=== PATIENT | male | born 1960 | race Caucasian/White ===

== ENCOUNTER → 2016-06-20 | Outpatient (CLI) | payer BC ==
[~2016-06-20] MED LIST: ZOLP5TAB PO
[2016-06-20 09:51] LABS: ESTIMATED AVERAGE GLUCOSE 111 mg/dl; HA1C FLAG Normal (Normal)
[2016-06-20 09:55] LABS: CHOLESTEROL/HDL RATIO 5.3; THYROID STIMULATING HORMONE 2.93 uIu/ml (0.300-4.500)
[2016-06-21 09:33] LABS: C-REACTIVE PROT HIGHSEN 0.9 MG/L
== END | disposition home or self-care (01) ==
LOC: C.LAB 07:28
DX: E78.5 Hyperlipidemia, unspecified (principal); R73.9 Hyperglycemia, unspecified

== ENCOUNTER 2016-07-22 09:14 | Emergency (ER) | payer BC ==
[~2016-07-22] VITALS: Ht 172.7 cm; Wt 81.2 kg
[2016-07-22 09:23] VITALS: TEMP 36.7; Ht 172.7 cm; Wt 81.2 kg
[2016-07-22] MEDS ORDERED: SODIUM CHLORIDE 0.9% 1000ML 500 ML IV STA (09:43)
[2016-07-22 10:07] LABS: BASO % 0.7 %; BASO ABS # 0.04 K/uL (0-0.2); COMPLETE YES; EOS % 5.3 %; HEMATOCRIT 42.2 % (42-52); IG% 0.2 %; LYMPH % 32.8 %; LYMPH ABS # 1.97 K/uL (1.2-3.4); MEAN CORPUSCULAR HEMOGLOBIN 29.3 pg (25-34); MEAN CORPUSCULAR HGB CONC 33.6 g/dl (32-36); MEAN PLATELET VOLUME 10.4 fL (7.4-10.4); MONO % 8.8 %; NEUT % 52.2 %; PLATELET COUNT 193 K/uL (130-400); RED BLOOD COUNT 4.85 M/uL (4.7-6.1)
[2016-07-22] MEDS ORDERED: ZOLP5TAB PO (10:13)
--- NOTE | 2016-07-22 10:23 | DIAGNOSTIC IMAGING REPORT ---
LUMBAR SPINE CT CT DOSE: HISTORY: Pain please reformat ct for stone to look at lumbar spine TECHNIQUE: Multiaxial CT images of the lumbar spine were performed and reformatted in the sagittal and coronal plane without the use of contrast. COMPARISON: None. FINDINGS: Vertebral body stature is normal. Degenerative intervertebral this changes present at L4-L5 and L5-S1. Mild osteophytic narrowing of the neuroforamina bilaterally at L4-L5 and L5-S1. No major compromise of the spinal canal. IMPRESSION: Mild degenerative change from L4 through S1. Mild osteophytic narrowing of the neuroforamina bilaterally from L4 through S1. No major compromise of the spinal canal. Electronically signed by: Beau Doss M.D. 07/22/2016 10:22 AM Dictated Date/Time: 07/22/2016 10:19 AM
--- NOTE | 2016-07-22 10:25 | DIAGNOSTIC IMAGING REPORT ---
ABDOMEN AND PELVIS CT WITHOUT CONTRAST CT DOSE: 674.61 mGy.cm HISTORY: back pain moving to abdomen--left worse TECHNIQUE: Multiaxial CT images of the abdomen and pelvis were performed without the use of intravenous and oral contrast according to the standard department stone protocol. COMPARISON STUDY: None. FINDINGS: The lung bases are clear. The unenhanced liver, gallbladder, spleen, pancreas, and adrenal glands are unremarkable. No renal stones or hydronephrosis. No bowel wall thickening or obstruction. The pelvic organs are unremarkable. No suspicious lytic or blastic osseous lesions. Normal appendix. IMPRESSION: No renal stones or hydronephrosis. Electronically signed by: aVn Vang M.D. 07/22/2016 10:24 AM Dictated Date/Time: 07/22/2016 10:19 AM
[2016-07-22 10:26] LABS: BUN/CREATININE RATIO 17.3 (10-20); CALCIUM 8.5 mg/dl (8.5-10.1); CREATININE 0.93 mg/dl (0.60-1.40); POTASSIUM 4.1 mmol/L (3.5-5.1)
[2016-07-22 10:28] LABS: ALB/GLOB RATIO 1.3 (0.9-2)
[2016-07-22 10:39] LABS: URINE APPEARANCE CLEAR (CLEAR); URINE BILIRUBIN NEG (NEG); URINE COLOR DK YELLOW; URINE NITRITE NEG (NEG); URINE SPECIFIC GRAVITY 1.024 (1.000-1.030); UROBILINOGEN NEG (NEG); ZZUR CULT IF INDIC CLEAN CATCH NO
[2016-07-22 10:42] LABS: MANUAL MICROSCOPIC REQUIRED? NO; REVIEW REQ? NO
[2016-07-22 11:25] VITALS: BP 110/85; PULSE 58; O2SAT 97
--- NOTE | 2016-07-22 14:34 | EMERGENCY ROOM VISIT NOTE ---
History Report prepared by Josemanuel: Deni Escobar Under the Supervision of: Dr. Jad Roberto M.D. First contact with patient: 09:32 Chief Complaint: BACK PAIN Stated Complaint: SPREADING BACK PAIN History of Present Illness The patient is a 56 year old male who presents to the Emergency Room with complaints of worsening back pain that started two weeks ago. He reports his discomfort as a 8/10 in severity. The patient states that he was fishing two weeks ago and suddenly fell into the stream on his foot. He denies falling on his abdomen or back. The patient reports that he started to feel pain in his right lower back following the incident, which has radiated to his abdomen. The patient states that he has seen his chiropractor twice including once ten days ago. He reports that during his last visit his chiropractor said that his back was doing better and was "looser". The patient states that his pain is exacerbated with movement. He reports that he took Motrin two days ago, which he admits gives him mild relief. The patient states that he also used Biofreeze and ice yesterday, and he admits the ice gives him a moderate amount of relief of pain. He also reports that his left leg is weak with a shooting pain down to his foot. He admits he takes Ambien daily to aid with sleeping. The patient denies any urinary symptoms, abnormal bowel movement, nausea, diaphoresis, fevers, kidney stones, family history of kidney stones, a history of diverticulitis, or any other pain. Source of History: patient Onset: two weeks ago Position: back Symptom Intensity: 8/10 Timing: worsening Modifying Factors (Worsening): exertion, movement Modifying Factors (Relieving): ice (Motrin), other Associated Symptoms: + abdominal pain, No fevers, No diaphoresis, No nausea , No diarrhea, No urinary symptoms Review of Systems See HPI for pertinent positives & negatives. A total of 10 systems reviewed and were otherwise negative. Past Medical & Surgical Medical Problems: (1) Asthma Family History FH: heart disease Social History Smoking Status: Light Tobacco Smoker (occasional cigar) Smokeless Tobacco Use: Yes Alcohol Use: none Drug Use: none Marital Status: single Housing Status: lives alone Occupation Status: employed Current/Historical Medications Scheduled Zolpidem Tartrate (Ambien), 5 MG PO HS Allergies Coded Allergies: BEE STING (Verified Allergy, Unknown, RASH, 8/20/16) Physical Exam Vital Signs Date Time Temp Pulse Resp B/P (MAP) Pulse Ox O2 Delivery O2 Flow Rate FiO2 07/22/16 11:25 58 16 110/85 97 07/22/16 10:40 72 18 106/64 96 Room Air 07/22/16 09:23 36.7 74 16 122/75 97 Room Air Physical Exam GENERAL: Patient is in no acute distress. HEENT: No acute trauma, normocephalic atraumatic, mucous membranes moist, no nasal congestion, no scleral icterus. NECK: No stridor, no adenopathy, no meningismus, trachea is midline. LUNGS: Clear to auscultation bilaterally, no wheeze, no rhonchi, breath sounds equal. HEART: Without murmurs gallops or rubs, regular rate and rhythm. ABDOMEN: Soft, tender mostly in left lower quadrant, bowel sounds positive, no hernias, no peritonitis. BACK: Tender with palpation of right lumbar musculature no tenderness to lumbar spine EXTREMITIES: No cyanosis or edema, full range of motion of all the joints without pain or difficulty, no signs for acute trauma. NEUROLOGIC: Oriented x 3, no acute motor or sensory deficits, no focal weakness. 2/4 reflexes in patella and Achilles bilaterally. SKIN: No rash, no jaundice, no diaphoresis. Medical Decision & Procedures ER Provider Diagnostic Interpretation: Radiology results as stated below per my review and radiologist interpretation: LUMBAR SPINE CT CT DOSE: HISTORY: Pain please reformat ct for stone to look at lumbar spine TECHNIQUE: Multiaxial CT images of the lumbar spine were performed and reformatted in the sagittal and coronal plane without the use of contrast. COMPARISON: None. FINDINGS: Vertebral body stature is normal. Degenerative intervertebral this changes present at L4-L5 and L5-S1. Mild osteophytic narrowing of the neuroforamina bilaterally at L4-L5 and L5-S1. No major compromise of the spinal canal. IMPRESSION: Mild degenerative change from L4 through S1. Mild osteophytic narrowing of the neuroforamina bilaterally from L4 through S1. No major compromise of the spinal canal. Electronically signed by: Beau Doss M.D. 07/22/2016 10:22 AM Dictated Date/Time: 07/22/2016 10:19 AM ABDOMEN AND PELVIS CT WITHOUT CONTRAST CT DOSE: 674.61 mGy.cm HISTORY: back pain moving to abdomen--left worse TECHNIQUE: Multiaxial CT images of the abdomen and pelvis were performed without the use of intravenous and oral contrast according to the standard department stone protocol. COMPARISON STUDY: None. FINDINGS: The lung bases are clear. The unenhanced liver, gallbladder, spleen, pancreas, and adrenal glands are unremarkable. No renal stones or hydronephrosis. No bowel wall thickening or obstruction. The pelvic organs are unremarkable. No suspicious lytic or blastic osseous lesions. Normal appendix. IMPRESSION: No renal stones or hydronephrosis. Electronically signed by: Van Vang M.D. 07/22/2016 10:24 AM Dictated Date/Time: 07/22/2016 10:19 AM Laboratory Results 07/22/16 09:55 Red Blood Count 4.85, Mean Corpuscular Volume 87.0, Mean Corpuscular Hemoglobin 29.3, Mean Corpuscular Hemoglobin Concent 33.6, Mean Platelet Volume 10.4, Neutrophils (%) (Auto) 52.2, Lymphocytes (%) (Auto) 32.8, Monocytes (%) (Auto) 8.8, Eosinophils (%) (Auto) 5.3, Basophils (%) (Auto) 0.7, Neutrophils # (Auto) 3.13, Lymphocytes # (Auto) 1.97, Monocytes # (Auto) 0.53, Eosinophils # (Auto) 0.32, Basophils # (Auto) 0.04 07/22/16 09:55 Test 07/22/16 09:34 07/22/16 09:55 Urine Color DK YELLOW Urine Appearance CLEAR (CLEAR) Urine pH 7.0 (4.5-7.5) Urine Specific [place] 1.024 (1.000-1.030) Urine Protein NEG (NEG) Urine Glucose (UA) NEG (NEG) Urine Ketones TRACE (NEG) Urine Occult Blood NEG (NEG) Urine Nitrite NEG (NEG) Urine Bilirubin NEG (NEG) Urine Urobilinogen NEG (NEG) Urine Leukocyte Esterase NEG (NEG) White Blood Count 6.00 K/uL (4.8-10.8) Red Blood Count 4.85 M/uL (4.7-6.1) Hemoglobin 14.2 g/dL (14.0-18.0) Hematocrit 42.2 % (42-52) Mean Corpuscular Volume 87.0 fL (80-100) Mean Corpuscular Hemoglobin 29.3 pg (25-34) Mean Corpuscular Hemoglobin Concent 33.6 g/dl (32-36) Platelet Count 193 K/uL (130-400) Mean Platelet Volume 10.4 fL (7.4-10.4) Neutrophils (%) (Auto) 52.2 % Lymphocytes (%) (Auto) 32.8 % Monocytes (%) (Auto) 8.8 % Eosinophils (%) (Auto) 5.3 % Basophils (%) (Auto) 0.7 % Neutrophils # (Auto) 3.13 K/uL (1.4-6.5) Lymphocytes # (Auto) 1.97 K/uL (1.2-3.4) Monocytes # (Auto) 0.53 K/uL (0.11-0.59) Eosinophils # (Auto) 0.32 K/uL (0-0.5) Basophils # (Auto) 0.04 K/uL (0-0.2) RDW Standard Deviation 40.2 fL (36.4-46.3) RDW Coefficient of Variation 12.6 % (11.5-14.5) Immature Granulocyte % (Auto) 0.2 % Immature Granulocyte # (Auto) 0.01 K/uL (0.00-0.02) Anion Gap 6.0 mmol/L (3-11) Est Creatinine Clear Calc Drug Dose 85.8 ml/min Estimated GFR () 106.0 Estimated GFR (Non- 91.4 BUN/Creatinine Ratio 17.3 (10-20) Calcium Level 8.5 mg/dl (8.5-10.1) Total Bilirubin 0.5 mg/dl (0.2-1) Aspartate Amino Transf (AST/SGOT) 21 U/L (15-37) Alanine Aminotransferase (ALT/SGPT) 22 U/L (12-78) Alkaline Phosphatase 54 U/L (45-117) Total Protein 6.7 gm/dl (6.4-8.2) Albumin 3.8 gm/dl (3.4-5.0) Globulin 2.9 gm/dl (2.5-4.0) Albumin/Globulin Ratio 1.3 (0.9-2) Lipase 219 U/L (73-393) Laboratory results reviewed by me. Medications Administered Medications (Trade) Dose Ordered Sig/Lanny Route Start Time Stop Time Status Last Admin Dose Admin Sodium Chloride 500 ml @ 999 mls/hr Q31M STAT IV 07/22/16 09:43 07/22/16 10:13 DC 07/22/16 09:43 999 MLS/HR ED Course 0935: The patient was evaluated in room B03. A complete history and physical exam was performed. 0943: Sodium Chloride 500 ml @ 999 mls/hr IV. 1100: Medication Reconciliation: I attest that I have personally reviewed the patient's current medication list. Blood Pressure Screening: Patient was found to have normal blood pressure on screening and does not require follow-up. 1103: I reevaluated the patient and he is doing well. Discussed results and discharge instructions: He verbalized understanding and agreement. The patient is ready for discharge. Medical Decision Differential diagnoses considered include but are not limited to: musculoskeletal pain, fracture, nerve impingement, disc disease, renal colic, diverticulitis, constipation, hernia. There is no leukocytosis or concerning anemia. No significant electrolyte abnormality, kidney failure or hepatitis. There is no pancreatitis. Urinalysis does not show hematuria or infection. Lumbar spine CT shows some arthritis, no fracture or bony malalignment. Abdominal and pelvis CT does not show any renal stone, there is no ureteral stone, no diverticulitis or bowel obstruction. The patient presents with bilateral lower flank pain and now some lower abdominal pain. His workup here is reassuring. He has not required any for pain. The discomfort he is experiencing is very likely musculoskeletal. He was reassured. Conservative measures were advised. Impression Primary Impression: Lower back pain Additional Impression: Lower abdominal pain Scribe Attestation The scribe's documentation has been prepared under my direction and personally reviewed by me in its entirety. I confirm that the note above accurately reflects all work, treatment, procedures, and medical decision making performed by me. Departure Information Dispostion Home / Self-Care Referrals Salbador Jones Jr,D.O. (PCP) Forms HOME CARE DOCUMENTATION FORM, IMPORTANT VISIT INFORMATION Patient Instructions My [facility] Additional Instructions ice for a few days and then switch to heat avoid lifting and bending/stooping continue the motrin or advil 600 mg every 6 hours for pain consider massage and gentle stretching return if worsening all testing today was ok as we discussed Problem Qualifiers
== END 2016-07-22 11:26 | disposition home or self-care (01) ==
LOC: C.EDB 09:16
DX: M54.5 Low back pain (principal); R10.30 Lower abdominal pain, unspecified; J45.909 Unspecified asthma, uncomplicated; Z82.49 Family history of ischemic heart disease and other diseases of the circulatory system; F17.200 Nicotine dependence, unspecified, uncomplicated

== ENCOUNTER → 2016-10-31 | Outpatient (CLI) | payer BC ==
[2016-10-31 09:59] LABS: CHOLESTEROL/HDL RATIO 5.5
== END | disposition home or self-care (01) ==
LOC: C.LAB 08:05
DX: E78.5 Hyperlipidemia, unspecified (principal)

== ENCOUNTER 2022-04-01 10:57 | Observation (INO) ==
[2022-04-01] MEDS ORDERED: ASPIRIN CHEW 324 MG PO STA (11:07)
[2022-04-01] MEDS ORDERED: FAMOTIDINE 20 MG in SYRINGE 3 ML IV ONE (11:45)
--- NOTE | 2022-04-01 11:45 | XRay Report ---
XR chest 1V portable CLINICAL HISTORY: Chest pain, nonspecific TECHNIQUE: Single frontal radiograph of the chest was obtained. Comparison: None available at the time of this dictation. FINDINGS: No lines and tubes are seen. The cardiomediastinal silhouette is normal. The lungs are clear. No evid ence of pleural effusion or pneumothorax. IMPRESSION: No acute chest disease. ACT 112: Negative or not required by law. Electronically signed by: Salvador Jimenez M.D. 04/01/2022 11:44 AM
[2022-04-01 11:47] LABS: Basophils # (auto) 0.04 K/uL (0-0.2); Basophils % (auto) 0.6 %; Eosinophils # (auto) 0.14 K/uL (0-0.50); Eosinophils % (auto) 2.2 %; Hematocrit (blood only) 43.3 % (42.0-52.0); Hemoglobin 14.8 g/dl (14.0-18.0); Immature Granulocytes # (auto) 0.02 K/uL (0.01-0.20); Immature Granulocytes % (auto) 0.3 %; Lymphocytes # (auto) 2.26 K/uL (1.2-3.4); Lymphocytes % (auto) 35.5 %; Mean Corpuscular Hemoglobin 29.9 pg (25.0-34.0); Mean Corpuscular Hgb Conc 34.2 g/dL (32.0-36.0); Mean Corpuscular Volume 87.5 fL (80.0-100.0); Mean Platelet Volume 10.4 fL (9.4-12.4); Monocytes % (auto) 9.4 %; Neutrophils # (auto) 3.31 K/uL (1.40-6.50); Platelet Count 197 K/uL (130-400); RDW Coefficient of Variation 12.3 % (11.5-14.5); RDW Standard Deviation 39.5 fL (36.4-46.3); Red Blood Count 4.95 M/uL (4.70-6.10); White Blood Count 6.37 K/ul (4.8-10.8)
[2022-04-01] MEDS ORDERED: FAMOTIDINE 20MG/5ML IV PUSH IV ONE (11:54)
[2022-04-01 12:10] LABS: Albumin Level 4.6 gm/dl (3.4-5.0); Bilirubin,Total 0.5 mg/dl (0.2-1.0); Calcium 9.3 mg/dl (8.5-10.1)
[2022-04-01 12:14] LABS: Troponin I High Sensitivity 3.7 pg/ml (0-20)
[2022-04-01 12:16] LABS: Albumin Globulin Ratio 1.7 (0.9-2); BUN Creatinine Ratio 17.5 (10-20); Creatinine Clr Calc Pharmacy 85.3 ml/min; Est GFR (African American) 97.3 ml/min; Est GFR (Non-African American) 83.9 ml/min; Globulin 2.7 gm/dl (2.5-4.0); Total Protein 7.3 gm/dl (6.0-8.3)
--- NOTE | 2022-04-01 14:17 | Emergency Department Note ---
Impression & Plan Chest pain, COVID-19 ED Provider Note CHIEF COMPLAINT: Chest pain HISTORY OF PRESENT ILLNESS: This 61-year-old male patient with a history of borderline diabetes, dyslipidemia, asthma, prostate cancer and smoking cigars presents to the emergency department with complaints of left-sided chest discomfort that started suddenly while sitting at his desk. The pain does not radiate to his back, jaw or arm. He denies any exacerbation of the pain with exertion. The patient has not had any recent fevers, cough or upper respiratory symptoms otherwise. The patient denies a personal history of cardiac disease but states his father has had multiple surgeries related to CAD. Patient's makes note that he has been choking on foods such as chicken over the last 2 months. She states he complains of difficulty swallowing food frequently. He has been taking Prilosec daily. REVIEW OF SYSTEMS: A review of systems was performed with positives and pertinent negatives listed in the history of present illness. 10 systems were reviewed and are otherwise negative. ALLERGIES: see below MEDICATIONS: see below PMH: see below SOCIAL HISTORY: see below DDx: Cardiac ischemia, aortic dissection, pulmonary embolism, pneumothorax, pneumonia, pericarditis, myocarditis, esophageal rupture, GERD, cholecystitis, pancreatitis, musculoskeletal, as well as other pathologies. PHYSICAL EXAM: Vital signs reviewed. General: Well-appearing 61-year-old male, in no significant distress. HEENT: No scleral icterus, PERRLA, neck supple. Atraumatic. Cardiovascular: Regular rate and rhythm, no extra sounds. Pulmonary: Clear to auscultation bilaterally, normal work of breathing. Abdomen: Soft, nontender, nondistended, positive bowel sounds. Musculoskeletal: Atraumatic, no peripheral edema. Neurologic: Patient awake alert and oriented x 3 Skin: Warm, dry, no rash EMERGENCY DEPARTMENT COURSE/MDM: This patient was evaluated and appeared to be in no significant distress. IV access was obtained and laboratory work was drawn. Patient was placed on the ekg monitor tech and noted to be in a normal sinus rhythm. External medical records were reviewed. EKG reveals no evidence of acute ischemic change. Laboratory work reveals a negative HS troponin x2. COVID swab is positive. The patient does have multiple cardiac risk factors including family history, tobacco use, prediabetes and dyslipidemia. After discussion with the patient and his family, it was determined that he would best be served with a full cardiac evaluation in the hospital. Hospitalist was contacted for admission and further management. MONITORING: An order for cardiac monitoring was placed and the patient is noted to be in a normal sinus rhythm at 76 beats per minute. RADIOLOGY: Chest x-ray to my interpretation reveals no evidence of focal lung consolidation or failure, mediastinal silhouette is normal-appearing. Otherwise defer to radiology EKG: To my interpretation reveals normal sinus rhythm at 78 bpm. Possible LVH, possible previous anterior infarct. QTc is 424. No PVC, no PAC. When compared to previous dated March 05, 2018 changes consistent with an previous anterior infarct are now present DISPOSITION: Admission Past Med/Surg History Medical History Asthma WEATHER INDUCED (NO INHALER PRESCRIBED) Surgical History H/O rotator cuff surgery Left History of colonoscopy History of tooth extraction Hx of vasectomy Family History Father Heart disease Mother No problems noted. Brother Prostate cancer Brother No problems noted. Brother No problems noted. Sister No problems noted. Sister No problems noted. Sister No problems noted. Daughter No problems noted. Son No problems noted. Other No family history of adverse response to anesthesia Denies family history of Ovarian cancer Myocardial infarction Breast cancer Colorectal cancer Social History Smoking Status: Current every day smoker Tobacco Type: Cigars Cigarettes Per Day: 1 cigar a day; Second Hand Exposure: No; Hx Alcohol Use: No Hx Substance Use: No Preferred Language: [place] Citizen Communication Ability: Effective Visual Impairment: No Limitations Hearing Ability: Normal Internet Marketing Strategist Required: No Beliefs That Will Affect Care: None marital status: Single Current Living Situation: Spouse Current Living Situation Comment: GIRLFRIEND, daughter, and grandson current occupational status: employed 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 How many Children do You have: 2 Feels Safe at Home: Yes Childhood Exposure to Second-Hand Smoke: No during the past year weight has: remained stable Dental Care, Regularly: No Physical Activity Frequency: 5-6 Times per Week Seatbelt Use: always Sunscreen Use: Yes Assistive Devices: None Allergies Allergies Allergy/AdvReac Type Severity Reaction Status Date / Time bee venom protein (honey bee) Allergy Severe Anaphylaxis Verified 12/26/21 14:20 Home Meds Home Medications Medication Instructions Recorded Confirmed omeprazole magnesium 20 mg 20 mg PO DAILY 04/01/22 04/01/22 tablet,delayed release (Prilosec OTC) Previous Rx's Medication Instructions Recorded tadalafil 5 mg tablet (Cialis) 5 mg PO UD PRN Sexual Activity #60 07/20/21 tabs scopolamine base 1 mg over 3 days 1 patch transdermal Q3D PRN nausea 09/10/21 transdermal patch and vomiting #4 ea sildenafil 100 mg tablet 100 mg PO DAILY PRN sexual 12/26/21 activity #20 tabs epinephrine 0.3 mg/0.3 mL 0.3 mg (0.3 mL) IM Q10M PRN 04/03/22 injection, auto-injector (EpiPen anaphylaxis #2 ea 2-[place]) Results & Data (ED) Vital Signs Vital Signs - 24 hr 04/01/22 10:58 04/01/22 11:14 04/01/22 11:20 Pulse Rate 84 92 H Pulse Rate [Left Finger] 75 Pulse Rate from SpO2 Sensor Respiratory Rate 18 20 Respiratory Effort / Characteristics Non-Labored Respiratory Depth Normal Blood Pressure 150/89 H Blood Pressure [Right Arm] 157/92 H Blood Pressure Mean 109 Blood Pressure Mean [Right Arm] 113 Blood Pressure Position [Right Arm] Sitting Pulse Oximetry 99 98 Oxygen Delivery Method Room Air Sepsis Recent Fever Within 48 Hours No Sepsis New/Unexplained Change in Mental Status No Sepsis Action Taken by Nursing No Action Required 04/01/22 11:57 04/01/22 11:59 04/01/22 14:07 Pulse Rate 78 Pulse Rate [Left Finger] 76 73 Pulse Rate from SpO2 Sensor Respiratory Rate 20 20 18 Respiratory Effort / Characteristics Non-Labored Non-Labored Spontaneous Respiratory Depth Normal Normal Blood Pressure Blood Pressure [Right Arm] 133/90 138/59 L Blood Pressure Mean Blood Pressure Mean [Right Arm] 104 85 Blood Pressure Position [Right Arm] Pulse Oximetry 97 97 98 Oxygen Delivery Method Room Air Room Air Sepsis Recent Fever Within 48 Hours Sepsis New/Unexplained Change in Mental Status Sepsis Action Taken by Nursing 04/01/22 11:56 04/01/22 11:56 04/01/22 12:00 Pulse Rate 77 Pulse Rate [Left Finger] Pulse Rate from SpO2 Sensor 78 Respiratory Rate 15 Respiratory Effort / Characteristics Respiratory Depth Blood Pressure 133/90 123/96 Blood Pressure [Right Arm] Blood Pressure Mean 104 105 Blood Pressure Mean [Right Arm] Blood Pressure Position [Right Arm] Pulse Oximetry 97 Oxygen Delivery Method Sepsis Recent Fever Within 48 Hours Sepsis New/Unexplained Change in Mental Status Sepsis Action Taken by Nursing 04/01/22 12:00 04/01/22 12:10 04/01/22 12:20 Pulse Rate 79 73 79 Pulse Rate [Left Finger] Pulse Rate from SpO2 Sensor 79 74 77 Respiratory Rate 17 16 15 Respiratory Effort / Characteristics Respiratory Depth Blood Pressure Blood Pressure [Right Arm] Blood Pressure Mean Blood Pressure Mean [Right Arm] Blood Pressure Position [Right Arm] Pulse Oximetry 96 97 97 Oxygen Delivery Method Sepsis Recent Fever Within 48 Hours Sepsis New/Unexplained Change in Mental Status Sepsis Action Taken by Nursing 04/01/22 12:30 04/01/22 12:30 04/01/22 12:40 Pulse Rate 71 76 Pulse Rate [Left Finger] Pulse Rate from SpO2 Sensor 68 76 Respiratory Rate 19 14 Respiratory Effort / Characteristics Respiratory Depth Blood Pressure 126/79 Blood Pressure [Right Arm] Blood Pressure Mean 94 Blood Pressure Mean [Right Arm] Blood Pressure Position [Right Arm] Pulse Oximetry 98 97 Oxygen Delivery Method Sepsis Recent Fever Within 48 Hours Sepsis New/Unexplained Change in Mental Status Sepsis Action Taken by Nursing 04/01/22 12:50 04/01/22 13:00 04/01/22 13:00 Pulse Rate 77 73 Pulse Rate [Left Finger] Pulse Rate from SpO2 Sensor 75 72 Respiratory Rate 13 15 Respiratory Effort / Characteristics Respiratory Depth Blood Pressure 119/90 Blood Pressure [Right Arm] Blood Pressure Mean 99 Blood Pressure Mean [Right Arm] Blood Pressure Position [Right Arm] Pulse Oximetry 96 97 Oxygen Delivery Method Sepsis Recent Fever Within 48 Hours Sepsis New/Unexplained Change in Mental Status Sepsis Action Taken by Nursing 04/01/22 13:10 04/01/22 13:20 04/01/22 13:30 Pulse Rate 75 75 Pulse Rate [Left Finger] Pulse Rate from SpO2 Sensor 76 75 Respiratory Rate 14 14 Respiratory Effort / Characteristics Respiratory Depth Blood Pressure 122/101 H Blood Pressure [Right Arm] Blood Pressure Mean 108 Blood Pressure Mean [Right Arm] Blood Pressure Position [Right Arm] Pulse Oximetry 97 97 Oxygen Delivery Method Sepsis Recent Fever Within 48 Hours Sepsis New/Unexplained Change in Mental Status Sepsis Action Taken by Nursing 04/01/22 13:30 04/01/22 13:40 04/01/22 13:46 Pulse Rate 75 73 Pulse Rate [Left Finger] Pulse Rate from SpO2 Sensor 77 72 Respiratory Rate 11 L 15 Respiratory Effort / Characteristics Respiratory Depth Blood Pressure 127/88 Blood Pressure [Right Arm] Blood Pressure Mean 101 Blood Pressure Mean [Right Arm] Blood Pressure Position [Right Arm] Pulse Oximetry 97 98 Oxygen Delivery Method Sepsis Recent Fever Within 48 Hours Sepsis New/Unexplained Change in Mental Status Sepsis Action Taken by Nursing 04/01/22 13:46 04/01/22 13:50 04/01/22 14:00 Pulse Rate 58 L 71 Pulse Rate [Left Finger] Pulse Rate from SpO2 Sensor 71 71 Respiratory Rate Respiratory Effort / Characteristics Respiratory Depth Blood Pressure 139/89 Blood Pressure [Right Arm] Blood Pressure Mean 105 Blood Pressure Mean [Right Arm] Blood Pressure Position [Right Arm] Pulse Oximetry 98 99 Oxygen Delivery Method Sepsis Recent Fever Within 48 Hours Sepsis New/Unexplained Change in Mental Status Sepsis Action Taken by Nursing 04/01/22 14:00 Pulse Rate 79 Pulse Rate [Left Finger] Pulse Rate from SpO2 Sensor 75 Respiratory Rate Respiratory Effort / Characteristics Respiratory Depth Blood Pressure Blood Pressure [Right Arm] Blood Pressure Mean Blood Pressure Mean [Right Arm] Blood Pressure Position [Right Arm] Pulse Oximetry 98 Oxygen Delivery Method Sepsis Recent Fever Within 48 Hours Sepsis New/Unexplained Change in Mental Status Sepsis Action Taken by [facility] Medications Current Medication List: was personally reviewed by me Laboratory Data Attestation: I reviewed the patient's lab results. 04/01/22 11:10 04/01/22 11:10 Lab Results 04/01/22 04/01/22 04/01/22 Range/Units 11:10 11:10 11:10 WBC 6.37 (4.8-10.8) K/ul RBC 4.95 (4.70-6.10) M/uL Hgb 14.8 (14.0-18.0) g/dl Hct 43.3 (42.0-52.0) % MCV 87.5 (80.0-100.0) fL MCH 29.9 (25.0-34.0) pg MCHC 34.2 (32.0-36.0) g/dL RDW Std Deviation 39.5 (36.4-46.3) fL RDW Coeff of Rebecca 12.3 (11.5-14.5) % Plt Count 197 (130-400) K/uL MPV 10.4 (9.4-12.4) fL Immature Gran % (Auto) 0.3 % Neut % (Auto) 52.0 % Lymph % (Auto) 35.5 % [place] % (Auto) 9.4 % Eos % (Auto) 2.2 % Baso % (Auto) 0.6 % Neut # (Auto) 3.31 (1.40-6.50) K/uL Lymph # (Auto) 2.26 (1.2-3.4) K/uL [place] # (Auto) 0.60 H (0.11-0.59) K/uL Eos # (Auto) 0.14 (0-0.50) K/uL Baso # (Auto) 0.04 (0-0.2) K/uL Immature Gran # (Auto) 0.02 (0.01-0.20) K/uL Sodium 137 (136-145) mmol/L Potassium 4.0 (3.5-5.1) mmol/L Chloride 104 (98-107) mmol/L Carbon Dioxide 28 (21-32) mmol/L Anion Gap 5 (3-11) BUN 17 (6-23) mg/dl Creatinine 0.97 (0.6-1.4) mg/dl Est Cr Clr Drug Dosing 85.3 ml/min Est GFR ( Amer) 97.3 ml/min Est GFR (Non-Af Amer) 83.9 ml/min BUN/Creatinine Ratio 17.5 (10-20) Glucose 123 H (70-99(Fasting)) mg/dl Calcium 9.3 (8.5-10.1) mg/dl Total Bilirubin 0.5 (0.2-1.0) mg/dl AST 19 (13-39) U/L ALT 15 (7-52) U/L Alkaline Phosphatase 54 (34-104) U/L Troponin I High Sens 3.7 (0-20) pg/ml Total Protein 7.3 (6.0-8.3) gm/dl Albumin 4.6 (3.4-5.0) gm/dl Globulin 2.7 (2.5-4.0) gm/dl Albumin/Globulin Ratio 1.7 (0.9-2) Lipase 43 (11-82) U/L SARS-CoV-2, RNA, NAAT POSITIVE A* (NEGATIVE) 04/01/22 Range/Units 13:42 WBC (4.8-10.8) K/ul RBC (4.70-6.10) M/uL Hgb (14.0-18.0) g/dl Hct (42.0-52.0) % MCV (80.0-100.0) fL MCH (25.0-34.0) pg MCHC (32.0-36.0) g/dL RDW Std Deviation (36.4-46.3) fL RDW Coeff of Rebecca (11.5-14.5) % Plt Count (130-400) K/uL MPV (9.4-12.4) fL Immature Gran % (Auto) % Neut % (Auto) % Lymph % (Auto) % [place] % (Auto) % Eos % (Auto) % Baso % (Auto) % Neut # (Auto) (1.40-6.50) K/uL Lymph # (Auto) (1.2-3.4) K/uL [place] # (Auto) (0.11-0.59) K/uL Eos # (Auto) (0-0.50) K/uL Baso # (Auto) (0-0.2) K/uL Immature Gran # (Auto) (0.01-0.20) K/uL Sodium (136-145) mmol/L Potassium (3.5-5.1) mmol/L Chloride (98-107) mmol/L Carbon Dioxide (21-32) mmol/L Anion Gap (3-11) BUN (6-23) mg/dl Creatinine (0.6-1.4) mg/dl Est Cr Clr Drug Dosing ml/min Est GFR ( Amer) ml/min Est GFR (Non-Af Amer) ml/min BUN/Creatinine Ratio (10-20) Glucose (70-99(Fasting)) mg/dl Calcium (8.5-10.1) mg/dl Total Bilirubin (0.2-1.0) mg/dl AST (13-39) U/L ALT (7-52) U/L Alkaline Phosphatase (34-104) U/L Troponin I High Sens 3.6 (0-20) pg/ml Total Protein (6.0-8.3) gm/dl Albumin (3.4-5.0) gm/dl Globulin (2.5-4.0) gm/dl Albumin/Globulin Ratio (0.9-2) Lipase (11-82) U/L SARS-CoV-2, RNA, NAAT (NEGATIVE) Administered Medications Discontinued Medications Albuterol (Albut/Ipratrop 3mg/0.5mg Neb 3 Ml Vial) 3 ml NEB QIDR JEVON; Protocol Stop: 05/01/22 18:59 Last Admin: 04/02/22 07:11 Dose: Not Given Documented By: Admin: 04/01/22 19:36 Dose: 3 ml Documented By: PAUL Aspirin (Aspirin Chew 324 Mg) 324 mg PO NOW STA Stop: 04/01/22 11:08 Last Admin: 04/01/22 11:17 Dose: 324 mg Documented By: WILLI Mai Hydrox/Mg Hydrox/Simethicone 18 ml/ Lidocaine HCl 6 ml/ BARCODE IDENTIFIER 1 each 0 ml PO ONE ONE Stop: 04/01/22 14:46 Last Admin: 04/01/22 15:57 Dose: 24 ml Documented By: HARPAL Diphenhydramine HCl (Diphenhydramine Capsule 25 Mg Cap) 25 mg PO HS PRN PRN Reason: Sleep Stop: 05/01/22 19:58 Last Admin: 04/01/22 21:14 Dose: 25 mg Documented By: NITHIN Enoxaparin Sodium (Enoxaparin Inj 40 Mg/0.4 Ml Syr) 40 mg SQ Q12H JEVON Stop: 05/01/22 15:59 Last Admin: 04/02/22 08:37 Dose: 40 mg Documented By: Admin: 04/01/22 19:47 Dose: 40 mg Documented By: NITHIN Famotidine (Famotidine 20mg/5ml Iv Push) Confirm Administered Dose 20 mg IV .STK-MED ONE Stop: 04/01/22 11:55 Last Admin: 04/01/22 11:57 Dose: 20 mg Documented By: HEATHER Famotidine (Famotidine 10 Mg Tablet) 10 mg PO BID JEVON Stop: 05/01/22 20:59 Last Admin: 04/01/22 21:14 Dose: 10 mg Documented By: NITHIN Famotidine (Famotidine 20 Mg Tab) 20 mg PO BID JEVON Stop: 05/02/22 08:59 Last Admin: 04/02/22 08:38 Dose: 20 mg Documented By: MG Famotidine 20 mg/ Syringe 5 mls @ 2.5 mls/min IV NOW ONE Stop: 04/01/22 11:46 Last Admin: 04/01/22 11:57 Dose: Not Given Documented By: NRB Melatonin (Melatonin 3 Mg Tab) 3 mg PO HS PRN PRN Reason: Sleep Stop: 05/01/22 19:58 Last Admin: 04/01/22 21:14 Dose: 3 mg Documented By: KJL Pantoprazole Sodium (Pantoprazole 40 Mg Tab) 40 mg PO BID JEVON Stop: 05/02/22 08:59 Last Admin: 04/02/22 08:38 Dose: 40 mg Documented By: MG Imaging Data Radiologist's Impression: Chest X-Ray 04/01/22 10:58 XR chest 1V portable CLINICAL HISTORY: Chest pain, nonspecific TECHNIQUE: Single frontal radiograph of the chest was obtained. Comparison: None available at the time of this dictation. FINDINGS: No lines and tubes are seen. The cardiomediastinal silhouette is normal. The lungs are clear. No evidence of pleural effusion or pneumothorax. IMPRESSION: No acute chest disease. ACT 112: Negative or not required by law. Electronically signed by: Salvador Jimenez M.D. 04/01/2022 11:44 AM Discharge Plan Visit Data Chief Complaint: Chest Pain Stated Complaint: CHEST PAIN ED Provider: Dora Borrego Discharge Problem: Chest pain, COVID-19 Patient Disposition: Admitted As Inpatient Discharge Instructions Interventions: ED Discharge Assessment Last Done: 04/01/22 18:04
--- NOTE | 2022-04-01 14:22 | History & Physical Report ---
Date of Service April 01, 2022 Assessment & Plan (1) Chest pain: Plan: -Admit to med/tele -The patient is currently afebrile, hemodynamically stable, and stable on RA -At this time the etiology of the patient's chest pain is not clear but includes cardiac etiologies, musculoskeletal pain, anxiety, current Covid 19 infection, and hx of tobacco abuse -He does have multiple risk factors for CAD including dyslipidemia, obesity, and tobacco abuse -High sensitivity trop x 2 have been negative, will monitor q6h overnight and obtain a treadmill stress test tomorrow -Monitor on tele and pulse oximetry -Will obtain AM A1c and fasting lipid panel, patient is not currently on a Statin -Continue to stress smoking cessation -AM CBC and BMP -BL SCDs and SQ lovenox for DVT PPX (2) COVID-19: Plan: -Noted to be positive in the ED today -Currently asymptomatic and stable on RA -Monitor for now and start pulm hygiene (3) Difficulty swallowing: Plan: -Patient has noted difficulty swallowing especially when eating chicken -States that his swallowing difficulty has progressed over the past year, he recently started taking Prilosec for refulx symptoms as well -No issues with soft food or liquids if he has not had a recent esophageal spasm -Will consult Speech to evaluate, will keep him on clears for now -If any concerning findings may need to consult GI prior to discharge -S/P 20 mg IV famotidine in the ED, will try a GI cocktail to see if this resolves any of his symptoms (4) Dyslipidemia: Plan: -FU with fasting lipid panel tomorrow (5) Tobacco abuse: Plan: -Continue to stress smoking cessation Plan The patient was discussed with Dr. Moralez at the time of the admission History of Present Illness Chief Complaint: chest pain Primary Care Provider: Hanna Shin MD Matias is a 61 year old male with a PMH significant for dyslipidemia, asthma, tobacco abuse, prostate cancer diagnosed in 2019 and follows with [facility], who presented to the [facility] ED on 04/01/22 with a chief complaint of chest pain. In the ED the patient was found to be afebrile, hemodynamically stable, and stable on RA. Labs were remarkable for a CBC WNL, glucose of 123 otherwise CMP WNL, initial High sensitivity trop of 3.7, and was noted to be covid positive. Chest xray was read as "No acute chest disease.". His ECG in the ED was showing T-wave flattening in the inferior leads. The patient was given 24 mg PO aspirin and 20 mg IV famotidine in the ED prior to admission. At the time of the exam the patient was resting comfortably in bed in no acute distress with his sitting bedside. He states that earlier this am while sitting at his desk at work he experienced sudden onset of sharp, left- sided chest pain which lasted for approximately 1-2 minutes. He states that the sharp chest pain then changed to a dull/achy pain in the same distribution. He denies radiation of the pain and taking medication for the pain. He did note lightheadedness/dizziness with onset of the chest pain. By the time he arrived to the ED the pain had resolved. He was able to walk to the bathroom in his room without issue but experienced lightheadedness/dizziness once he got himself back into bed. At the time of the exam he is currently symptom free. He has been smoking one cigar daily for the past 8 years, he denies previous cigarette use and has not used alcohol in over 10 years. He denies a pervious history of cardiac disease or procedures. When asked, he denies increased SOB or SHANNON with most activity such as walking up steps or taking walks with his . He was doing yard work yesterday and noted some SOB but denies chest pain/discomfort/lightheadedness at that time. He does not remember injuring himself yesterday but was lifting large bags of grass.He and his mentioned that the patient has been having issues eating chicken over the past year. He states that when he is eating chicken he will often experience difficultly swallowing due to esophageal spasms. He will normally have no issues with eating soft foods or liquids, unless he recently had an esophageal spasm. He thinks he may have started to have covid symptoms approximately one week ago as he had developed chills and fatigue. He current denies fever, chills, changes in vision, hearing, taste, and smell, SOB, cough, abd pain, nausea, vomiting, dysuria, hematuria, melena, LE swelling, and recent trauma. We discussed code status, he is a full code and would want his to make medical decisions if he could not make them himself. Please refer to Dr. Moralez's attestation for any changes to the treatment plan Allergies Allergy/AdvReac Type Severity Reaction Status Date / Time bee venom protein (honey bee) Allergy Severe Anaphylaxis Verified 12/26/21 14:20 Home Medications Medication Instructions Recorded Confirmed Type epinephrine 0.3 mg/0.3 mL 0.3 mg (0.3 mL) IM Q10M PRN 07/17/21 04/01/22 Rx injection, auto-injector (EpiPen anaphylaxis #2 ea 2-Glenroy) tadalafil 5 mg tablet (Cialis) 5 mg PO UD PRN Sexual Activity #60 07/20/21 04/01/22 Rx tabs scopolamine base 1 mg over 3 days 1 patch transdermal Q3D PRN nausea 09/10/21 04/01/22 Rx transdermal patch and vomiting #4 ea sildenafil 100 mg tablet 100 mg PO DAILY PRN sexual 12/26/21 04/01/22 Rx activity #20 tabs omeprazole magnesium 20 mg 20 mg PO DAILY 04/01/22 04/01/22 History tablet,delayed release (Prilosec OTC) Past Med/Surg History Medical History Asthma WEATHER INDUCED (NO INHALER PRESCRIBED) Surgical History H/O rotator cuff surgery Left History of colonoscopy History of tooth extraction Hx of vasectomy Family History Father Heart disease Mother No problems noted. Brother Prostate cancer Brother No problems noted. Brother No problems noted. Sister No problems noted. Sister No problems noted. Sister No problems noted. Daughter No problems noted. Son No problems noted. Other No family history of adverse response to anesthesia Denies family history of Ovarian cancer Myocardial infarction Breast cancer Colorectal cancer Social History Smoking Status: Current every day smoker Tobacco Type: Cigars Cigarettes Per Day: 1 cigar a day; Second Hand Exposure: No; Do You Dip or Chew Tobacco: No; Hx Alcohol Use: No Hx Substance Use: No Preferred Language: [place] Communication Ability: Effective Visual Impairment: No Limitations Hearing Ability: Normal Consumer Product Advisor Required: No Beliefs That Will Affect Care: None marital status: Single Current Living Situation: Spouse Current Living Situation Comment: GIRLFRIEND, daughter, and grandson current occupational status: employed 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 All systems have been reviewed and are otherwise negative. Physical Exam Physical Exam: Physical Exam: General: In no acute distress, stated age, well-nourished, good hygiene HEENT: Normocephalic, atraumatic, no scleral icterus, pupils around round, symmetrical, and reactive to light, moist mucus membranes, trachea midline, no thyromegaly Chest/Pulm: No respiratory distress, symmetrical chest expansion, clear breath sounds throughout Cardiac: RRR, no murmurs noted, no reproducible chest pain upon palpation Abdomen: Negative for ascites and bruising, normoactive bowel sounds, soft, non-tender to palpation throughout Musculoskeletal: Symmetrical and without signs of acute trauma, upper and lower extremities with full ROM, no atrophy, spasticity, or flaccidity Extremities: Radial, dorsalis pedis, and posterior tibial pulses are intact and symmetrical, no edema noted in the BL LE's Skin: Warm, dry, no rashes , lesions, or scars noted Neuro: Alert and oriented to person, place, month, year, and president, no focal defects, CN II-XII tested and intact,no tremors noted Psych: No acute distress, calm and cooperative during the exam Results & Data Results & Data ([facility]) Vital Signs (Past 12 Hours) Vital Signs Pulse Pulse Resp BP BP Pulse Ox O2 Del Method 04/01/22 14:00 79 98 04/01/22 14:00 139/89 04/01/22 13:50 71 99 04/01/22 13:46 58 L 98 04/01/22 13:46 127/88 04/01/22 13:40 73 15 98 04/01/22 13:30 75 11 L 97 04/01/22 13:30 122/101 H 04/01/22 13:20 75 14 97 04/01/22 13:10 75 14 97 04/01/22 13:00 73 15 97 04/01/22 13:00 119/90 04/01/22 12:50 77 13 96 04/01/22 12:40 76 14 97 04/01/22 12:30 71 19 98 04/01/22 12:30 126/79 04/01/22 12:20 79 15 97 04/01/22 12:10 73 16 97 04/01/22 12:00 79 17 96 04/01/22 12:00 123/96 04/01/22 11:56 133/90 04/01/22 11:56 77 15 97 04/01/22 14:07 73 18 138/59 L 98 04/01/22 11:59 78 20 97 Room Air 04/01/22 11:57 76 20 133/90 97 Room Air 04/01/22 11:20 92 H 04/01/22 11:14 75 20 157/92 H 98 04/01/22 10:58 84 18 150/89 H 99 Room Air Laboratory Results Abnormal lab results 04/01/22 04/01/22 04/01/22 Range/Units 11:10 11:10 11:10 Cannon # (Auto) 0.60 H (0.11-0.59) K/uL Glucose 123 H (70-99(Fasting)) mg/dl SARS-CoV-2, RNA, NAAT POSITIVE A* (NEGATIVE) Diagnostic Findings Chest X-Ray 04/01/22 10:58 XR chest 1V portable CLINICAL HISTORY: Chest pain, nonspecific TECHNIQUE: Single frontal radiograph of the chest was obtained. Comparison: None available at the time of this dictation. FINDINGS: No lines and tubes are seen. The cardiomediastinal silhouette is normal. The lungs are clear. No evidence of pleural effusion or pneumothorax. IMPRESSION: No acute chest disease. ACT 112: Negative or not required by law. Electronically signed by: Salvador Jimenez M.D. 04/01/2022 11:44 AM ECG Additional Comments: Normal sinus rhythm Minimal voltage criteria for LVH, may be normal variant Cannot rule out Anterior infarct , age undetermined Abnormal ECG When compared with ECG of 05-MAR-2018 12:27, Minimal criteria for Anterior infarct are now Present Nonspecific T wave abnormality now evident in Inferior leads Code Status & VTE Plan Code Status Full code VTE Prophylaxis Plan VTE Prophylaxis will be ordered: Yes Supervising Physician Co-Signing Physician Notes PA Supervision Note: I personally saw and examined the patient. I verified all wahl points and agree with MADI Phelps with the following exceptions and/or additions: Subjective: 61-year-old male with a history significant for tobacco use, hyperlipidemia, GERD, asthma presented for sharp left-sided chest pain that occurred while he was sitting at his desk, lasting for about 1 to 2 minutes, without associated nausea, shortness of breath, diaphoresis, lightheadedness. Yesterday he was lifting large bags of grass at home and he did not have this c hest pain, does not recall injuring himself in any way while lifting those large bags. He also notes that about a week ago he started having some chills and fatigue, but at this time denies sore throat or other URI symptoms. 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 He does not get this sensation with liquids or softer foods. Physical exam: Vitals reviewed Gen: Alert and oriented, NAD HEENT: anicteric sclerae, EOMI CV: RRR no murmurs Pulm: CTAB no wheezes or crackles Abd: +BS soft NT ND no masses Ext: no edema, 2+ DP pulses Skin: no rashes, warm/dry Neuro: No focal neurologic deficits Labs, Rads, and ECG reviewed Assessment and Plan: Chest pain, cardiac vs. GERD-related: Unlikely to be ACS given sharp and rapid nature of pain with quick resolution, no associated symptoms, however will trend troponins given that patient had symptoms only about an hour before presenting to the emergency room. EKG without findings suggestive of ACS at this time. Given multiple risk factors for heart disease patient will have stress echo in the morning, as well as A1c and lipids. Patient has a history of GERD symptoms, and does admit to eating spicy/tomato-based foods. Patient's dysphagia sensation is suggestive of possible distal esophageal spasm, will ensure no swallowing issues and have speech therapy eval, trial twice daily PPI and twice daily Pepcid and if no symptom relief may need evaluation by gastroenterology for esophageal evaluation. COVID-19: Incidentally positive on admission testing, no symptoms, saturating well on room air. Continue to monitor and initiate treatment as necessary. Plan otherwise as dictated above PG Care Time/CCT Total # of Minutes Spent Total Time Spent with Patient: Total time spent is greater than 50% in coordination of care (as documented) at patient's floor/unit and/or counseling patient: C[place] [address] INT INP/OBS CARE 3/75MIN Patient Type Established Medical Decision Making High Complexity Diagnoses Chest pain R07.9 COVID-19 U07.1 Difficulty swallowing R13.10 Dyslipidemia E78.5 Tobacco abuse Z72.0
[2022-04-01] MEDS ORDERED: ALUMINUM/MAGNESIUM SUSP 18 ML, LIDOCAINE VISCOUS 2% SOLN 6 ML, BARCODE IDENTIFIER 1 EACH PO ONE (14:45)
--- NOTE | 2022-04-01 17:09 | Electrocardiogram Report ---
Test Reason : Blood Pressure : / mmHG Vent. Rate : 078 BPM Atrial Rate : 078 BPM P-R Int : 188 ms QRS Dur : 084 ms QT Int : 372 ms P-R-T Axes : 025 -24 013 degrees QTc Int : 424 ms Normal sinus rhythm Minimal voltage criteria for LVH, may be normal variant Poor R wave progression, consider anterior MS vs. lead placement vs. LVH Abnormal ECG When compared with ECG of 05-MAR-2018 12:27, Minimal criteria for Anterior infarct are now Present Nonspecific T wave abnormality now evident in Inferior leads Confirmed by Len Lubin ([id number]) on 04/01/2022 5:09:26 PM Referred By: Confirmed By:Foster Lubin
[2022-04-01] MEDS: ALBUT/IPRATROP 3MG/0.5MG NEB 3 ML VIAL NEB SCH (19:36)
[2022-04-01] MEDS: ENOXAPARIN INJ 40 MG/0.4 ML SYR SQ SCH (19:47)
[2022-04-01] MEDS ORDERED: MELATONIN 3 MG TAB PO PRN (19:59)
[2022-04-01] MEDS ORDERED: diphenhydrAMINE Capsule 25 MG CAP PO PRN (19:59)
[2022-04-01] MEDS ORDERED: ENOXAPARIN 0.5 MG/KG SQ SCH (21:00)
[2022-04-01] MEDS ORDERED: FAMOTIDINE 10 MG TABLET PO SCH (21:00)
[2022-04-02 02:29] LABS: Hematocrit (blood only) 39.8 % (42.0-52.0); Hemoglobin 13.9 g/dl (14.0-18.0); Mean Corpuscular Hemoglobin 30.2 pg (25.0-34.0); Mean Corpuscular Hgb Conc 34.9 g/dL (32.0-36.0); Mean Corpuscular Volume 86.5 fL (80.0-100.0); Mean Platelet Volume 10.1 fL (9.4-12.4); Platelet Count 186 K/uL (130-400); RDW Coefficient of Variation 12.5 % (11.5-14.5); RDW Standard Deviation 39.4 fL (36.4-46.3); White Blood Count 6.86 K/ul (4.8-10.8)
[2022-04-02 02:46] LABS: BUN Creatinine Ratio 15.2 (10-20); Calcium 9.1 mg/dl (8.5-10.1); Chol HDL Ratio 7.5 (0-5); Creatinine Clr Calc Pharmacy 76.5 ml/min; Est GFR (African American) 88.4 ml/min; Est GFR (Non-African American) 76.2 ml/min; Potassium 4.2 mmol/L (3.5-5.1)
[2022-04-02] MEDS ORDERED: Nursing to Pharmacy Communication SCH (05:00)
[2022-04-02] MEDS: ALBUT/IPRATROP 3MG/0.5MG NEB 3 ML VIAL NEB SCH (07:11)
[2022-04-02 07:30] LABS: Estimated Average Glucose 114 mg/dl; Hemoglobin A1C 5.6 % (4.5-5.6)
[2022-04-02] MEDS: ENOXAPARIN INJ 40 MG/0.4 ML SYR SQ SCH (08:37)
[2022-04-02] MEDS ORDERED: FAMOTIDINE 20 MG TAB PO SCH (09:00)
[2022-04-02] MEDS ORDERED: PANTOprazole 40 MG TAB PO SCH ×2 (09:00)
[2022-04-02] MEDS ORDERED: ALBUT/IPRATROP 3MG/0.5MG NEB 3 ML VIAL NEB PRN (10:11)
--- NOTE | 2022-04-02 11:11 | Hospitalist Progress Note ---
Date of Service April 02, 2022 Assessment & Plan (1) Chest pain: Plan: -Admitted on account of central chest pain, non radiating -At this time the etiology of the patient's chest pain is not clear but includes cardiac etiologies, musculoskeletal pain, anxiety, current Covid 19 infection, and hx of tobacco abuse -He does have multiple risk factors for CAD including dyslipidemia, obesity, and tobacco abuse -High sensitivity trop x 2 have been negative, -EKG did not show any ST changes -Has been scheduled for a stress test (2) COVID-19: Plan: -Noted to be positive in the ED -Currently asymptomatic and stable on RA (3) Difficulty swallowing: Plan: -Patient has noted difficulty swallowing especially when eating chicken -States that his swallowing difficulty has progressed over the past year, he recently started taking Prilosec for refulx symptoms as well -No issues with soft food or liquids if he has not had a recent esophageal spasm -Will consult Speech to evaluate (4) Dyslipidemia: Plan: -patient on statins (5) Tobacco abuse: Plan: -Continue to stress smoking cessation Plan possible d/c after stress test if negative Admission and Anticipated Discharge Date Admission Date: April 01, 2022 Subjective patient seen and examined, says his chest pain has resolved, looking forward to stress test and swallow eval Review of Systems Review of Systems: All systems reviewed are negative, apart from the ones contained in the history. Physical Exam Physical Exam: The patient is awake, alert and oriented 3, well developed and well nourished, normocephalic and atraumatic, lying in bed and in no acute distress. HEENT--PERRL, EOMI, mucous membranes and oropharynx mildly dry Neck--supple. No JVD. No bruits. Thyroid normal, trachea midline, no adenopathy. Heart--normal S1 and S2. No murmurs, rubs or gallops. Lungs--clear bilaterally, no respiratory distress, no accessory muscle use. Abdomen--normal bowel sounds and soft. Mild epigastric and left sided abdominal pain Extremities--no cyanosis or clubbing. No edema. Dermatologic--normal skin turgor, normal color, no abnormal lymph nodes, no rash. Neurologic--cranial nerves II through XII grossly intact. Rheumatologic--normal range of motion. Psychiatric--normal affect. Results & Data Results & Data ([facility]) Vital Signs (Past 12 Hours) Vital Signs Temp Pulse Pulse Resp BP Pulse Ox O2 Del Method 04/02/22 08:54 98.1 F 74 18 138/89 93 Room Air 04/02/22 05:59 65 04/02/22 05:02 98.4 F 65 16 104/59 L 95 Room Air 04/02/22 01:58 73 04/01/22 23:26 98.1 F 71 16 102/65 97 Room Air PG Care Time/CCT Total # of Minutes Spent Total Time Spent with Patient: Total time spent is greater than 50% in coordination of care (as documented) at patient's floor/unit and/or counseling patient: Coding Level of Care Code 11774 SUB INP/OBS CARE 2/35MIN Diagnoses Chest pain R07.9 COVID-19 U07.1 Difficulty swallowing R13.10 Dyslipidemia E78.5 Tobacco abuse Z72.0 Time Spent (min) 35
--- NOTE | 2022-04-02 14:48 | Discharge Summary ---
Date of Service April 02, 2022 Admission HPI Per Admitting Provider Matias is a 61 year old male with a PMH significant for dyslipidemia, asthma, tobacco abuse, prostate cancer diagnosed in 2019 and follows with [facility], who presented to the [facility] ED on 04/01/22 with a chief complaint of chest pain. In the ED the patient was found to be afebrile, hemodynamically stable, and stable on RA. Labs were remarkable for a CBC WNL, glucose of 123 otherwise CMP WNL, initial High sensitivity trop of 3.7, and was noted to be covid positive. Chest xray was read as "No acute chest disease.". His ECG in the ED was showing T-wave flattening in the inferior leads. The patient was given 24 mg PO aspirin and 20 mg IV famotidine in the ED prior to admission. At the time of the exam the patient was resting comfortably in bed in no acute distress with his sitting bedside. He states that earlier this am while sitting at his desk at work he experienced sudden onset of sharp, left- sided chest pain which lasted for approximately 1-2 minutes. He states that the sharp chest pain then changed to a dull/achy pain in the same distribution. He denies radiation of the pain and taking medication for the pain. He did note lightheadedness/dizziness with onset of the chest pain. By the time he arrived to the ED the pain had resolved. He was able to walk to the bathroom in his room without issue but experienced lightheadedness/dizziness once he got himself back into bed. At the time of the exam he is currently symptom free. He has been smoking one cigar daily for the past 8 years, he denies previous cigarette use and has not used alcohol in over 10 years. He denies a pervious history of cardiac disease or procedures. When asked, he denies increased SOB or SHANNON with most activity such as walking up steps or taking walks with his . He was doing yard work yesterday and noted some SOB but denies chest pain/discomfort/lightheadedness at that time. He does not remember injuring himself yesterday but was lifting large bags of grass.He and his mentioned that the patient has been having issues eating chicken over the past year. He states that when he is eating chicken he will often experience difficultly swallowing due to esophageal spasms. He will normally have no issues with eating soft foods or liquids, unless he recently had an esophageal spasm. He thinks he may have started to have covid symptoms approximately one week ago as he had developed chills and fatigue. He current denies fever, chills, changes in vision, hearing, taste, and smell, SOB, cough, abd pain, nausea, vomiting, dysuria, hematuria, melena, LE swelling, and recent trauma. We discussed code status, he is a full code and would want his to make medical decisions if he could not make them himself. Principal Diagnosis chest pain Discharge Exam The patient is awake, alert and oriented 3, well developed and well nourished, normocephalic and atraumatic, lying in bed and in no acute distress. HEENT--PERRL, EOMI, mucous membranes and oropharynx mildly dry Neck--supple. No JVD. No bruits. Thyroid normal, trachea midline, no adenopathy. Heart--normal S1 and S2. No murmurs, rubs or gallops. Lungs--clear bilaterally, no respiratory distress, no accessory muscle use. Abdomen--normal bowel sounds and soft. Mild epigastric and left sided abdominal pain Extremities--no cyanosis or clubbing. No edema. Dermatologic--normal skin turgor, normal color, no abnormal lymph nodes, no rash. Neurologic--cranial nerves II through XII grossly intact. Rheumatologic--normal range of motion. Psychiatric--normal affect. Discharge Data Allergies Allergy/AdvReac Type Severity Reaction Status Date / Time bee venom protein (honey bee) Allergy Severe Anaphylaxis Verified 12/26/21 14:20 Hospital Course (1) Chest pain: -Admitted on account of central chest pain, non radiating -At this time the etiology of the patient's chest pain is not clear but includes cardiac etiologies, musculoskeletal pain, anxiety, current Covid 19 infection, and hx of tobacco abuse -He does have multiple risk factors for CAD including dyslipidemia, obesity, and tobacco abuse -High sensitivity trop x 2 have been negative, -EKG did not show any ST changes -Initially scheduled for a stress test, but cardiology determined it would be low yield -D/C home to follow up with PCP (2) COVID-19: -Noted to be positive in the ED -Currently asymptomatic and stable on RA (3) Difficulty swallowing: -Patient has noted difficulty swallowing especially when eating chicken -States that his swallowing difficulty has progressed over the past year, he recently started taking Prilosec for refulx symptoms as well -No issues with soft food or liquids if he has not had a recent esophageal spasm -Speech evaluated and suggested outpatient follow up with GI (4) Dyslipidemia: -patient on statins (5) Tobacco abuse: -Continue to stress smoking cessation Plan d/c home Total Time Total Time Spent Total Time Spent (In Minutes): 35 Discharge Plan Discharge Items Patient Disposition: Home - Self-Care Reason For Visit: CHEST PAIN Discharge Diagnosis: chest pain Activity: Resume your previous activity Non-emergency contact: Primary Care Provider Call non-emergency contact if: you have any medication questions and your symptoms worsen Follow-up/Referrals: Hanna Shin MD [Primary Care Provider] - Diet: Regular Addtl Attending Provider Instructions: please make appointment to follow up with your regular PCP, also follow up with gastroenterology for your difficulty swallowing Pending Studies at Discharge: No Stand-Alone Forms: My [facility], Smoking Cessation Medications and DC Order Prescriptions: Continued epinephrine [EpiPen 2-Glenroy] 0.3 mg/0.3 mL auto-injector 0.3 mg IM Q10M PRN (Reason: anaphylaxis) Qty: 2 0RF Rx Instructions: for 2 doses tadalafil [Cialis] 5 mg tablet 5 mg PO UD PRN (Reason: Sexual Activity) Qty: 60 0RF scopolamine base 1 mg over 3 days patch 3 day 1 patch transdermal Q3D PRN (Reason: nausea and vomiting) Qty: 4 0RF sildenafil 100 mg tablet 100 mg PO DAILY PRN (Reason: sexual activity) Qty: 20 11RF Rx Instructions: administer 30 minutes to 4 hours before activity omeprazole magnesium [Prilosec OTC] 20 mg Tablet,Delayed Release (Dr/Ec) 20 mg PO DAILY Discharge Orders: Discharge Order (Routine); Ordered 04/02/22 Ordered By: Huan Dunn Admission Data Admit Date/Time: 04/01/22 14:21 Attending Provider: Huan Dunn Admit Provider: Jaquelin Moralez Primary Care Provider: Hanna Shin Coding Level of Care Code HOSP INP/OBS DISCH >30 MIN Diagnoses Chest pain R07.9 COVID-19 U07.1 Difficulty swallowing R13.10 Dyslipidemia E78.5 Tobacco abuse Z72.0 Time Spent (min) 35
== END 2022-04-02 16:27 | disposition home or self-care (01) ==
LOC: ED 10:57 → EDINP 10:57 → SUATTDRO 14:21 → 2N 17:55